=== PATIENT | male | born 1950 | race Caucasian/White ===

== ENCOUNTER 2021-05-01 16:06 | Emergency (ER) | payer OTHER | END 2021-05-01 16:50 | disposition left against medical advice (07) | LOC: ED 16:06 | DX: R06.02 Shortness of breath (principal); Z53.21 Procedure and treatment not carried out due to patient leaving prior to being seen by health care provider ==

== ENCOUNTER 2021-08-13 09:45 | Inpatient (IN) | payer OTHER ==
[~2021-08-13] VITALS: Ht 180.3 cm; Wt 107.2 kg
[2021-08-13 10:01] VITALS: BP 149/71
[2021-08-13 10:12] LABS: BASO # 0.1 10*3/uL (0.0-0.1); EOS # 0.1 10*3/uL (0.0-0.4); EOS % 1.4 % (1.0-4.0); HEMATOCRIT 46.8 % (42.0-52.0); LYMPH # 1.9 10*3/uL (1.3-4.4); LYMPH % 22.6 % (27.0-41.0); MEAN CELL VOLUME 89.8 fl (80.0-94.0); MEAN CORPUSCULAR HGB 29.4 pg (27.0-31.0); MEAN CORPUSCULAR HGB CONC 32.7 g/dl (33.0-37.0); MEAN PLATELET VOLUME 10.2 fl (9.6-12.3); MONO # 0.5 10*3/uL (0.1-1.0); MONO % 5.9 % (3.0-9.0); NEUT # 5.8 10*3/uL (2.3-7.9); NEUT % 68.9 % (47.0-73.0); PLATELET COUNT AUTOMATED 282 10*3/uL (130-400); RED BLOOD COUNT 5.21 10*6/uL (4.50-5.90); RED CELL DISTRI WIDTH 13.2 % (0-14.5); WHITE BLOOD COUNT 8.4 10*3/uL (4.8-10.8)
[2021-08-13 10:23] LABS: ACT PARTIAL THROMBO TIME 33.3 SECONDS (20.0-32.1)
[2021-08-13 10:29] LABS: ALKALINE PHOSPHATASE 62 U/L (45-117); BUN 12 mg/dl (7-24); CHLORIDE 107 mmol/L (98-107); CREATININE 1.12 mg/dL (0.70-1.30); POTASSIUM 3.6 mmol/L (3.5-5.1); SGOT/AST 12 IU/L (3-35); SGPT/ALT 22 U/L (12-78); SODIUM 138 mmol/L (136-145); TOTAL PROTEIN 7.5 gm/dL (6.4-8.2)
[2021-08-13 13:26] VITALS: BP 142/77
[2021-08-13 16:00] VITALS: BP 135/78
[2021-08-13 20:00] VITALS: BP 141/46
[2021-08-14] VITALS: BP 131/75
[2021-08-14 06:46] LABS: BUN 15 mg/dl (7-24); CHLORIDE 109 mmol/L (98-107); POTASSIUM 4.1 mmol/L (3.5-5.1); SODIUM 137 mmol/L (136-145)
[2021-08-14 06:55] LABS: ALKALINE PHOSPHATASE 59 U/L (45-117); CREATININE 1.12 mg/dL (0.70-1.30); FREE T4 0.96 ng/dl (0.76-1.46); SGOT/AST 6 IU/L (3-35); SGPT/ALT 21 U/L (12-78); THYROID STIM HORMONE (HS) 0.373 uIU/ml (0.358-4.75); TOTAL PROTEIN 7.5 gm/dL (6.4-8.2)
[2021-08-14 07:01] LABS: BASO % 0.1 % (0.0-1.0); HEMATOCRIT 45.4 % (42.0-52.0); LYMPH # 1.4 10*3/uL (1.3-4.4); LYMPH % 9.9 % (27.0-41.0); MEAN CELL VOLUME 89.2 fl (80.0-94.0); MEAN CORPUSCULAR HGB 29.9 pg (27.0-31.0); MEAN CORPUSCULAR HGB CONC 33.5 g/dl (33.0-37.0); MEAN PLATELET VOLUME 10.8 fl (9.6-12.3); MONO # 0.7 10*3/uL (0.1-1.0); MONO % 4.6 % (3.0-9.0); NEUT # 12.3 10*3/uL (2.3-7.9); NEUT % 84.8 % (47.0-73.0); PLATELET COUNT AUTOMATED 294 10*3/uL (130-400); RED BLOOD COUNT 5.09 10*6/uL (4.50-5.90); RED CELL DISTRI WIDTH 13.3 % (0-14.5); WHITE BLOOD COUNT 14.4 10*3/uL (4.8-10.8)
[2021-08-14 08:00] VITALS: BP 148/90
[2021-08-14] MEDS ORDERED: MAGNESIUM400 M1 PO (12:14)
[2021-08-14] MEDS ORDERED: BREZTRI AEROS10.7 GM INH (12:15)
[2021-08-14] MEDS ORDERED: PROVENTIL HFA6.7 GM INH (12:16)
[2021-08-14] MEDS ORDERED: DONEPEZIL HCL10 MG PO (12:17)
[2021-08-14] MEDS ORDERED: ALLOPURINOL100 MG PO (12:17)
[2021-08-14] MEDS ORDERED: NORVASC10 MG PO (12:18)
[2021-08-14] MEDS ORDERED: OMEPRAZOLE MAGN20 MG PO (12:18)
[2021-08-14] MEDS ORDERED: TAMSULOSIN HCL0.4 MG PO (12:19)
[2021-08-14] MEDS ORDERED: BUPROPION HYDR100 MG PO (12:19)
[2021-08-14] MEDS ORDERED: ZOLOFT100 MG PO (12:20)
[2021-08-14] MEDS ORDERED: LIPITOR80 MG PO (12:20)
[2021-08-14] MEDS ORDERED: LYRICA150 M1 PO (12:20)
[2021-08-14 16:00] VITALS: BP 157/64
[2021-08-14 20:00] VITALS: BP 163/94
[2021-08-15] VITALS: BP 174/67
[2021-08-15 06:09] LABS: BASO % 0.2 % (0.0-1.0); HEMATOCRIT 48.6 % (42.0-52.0); LYMPH # 2.7 10*3/uL (1.3-4.4); LYMPH % 13.8 % (27.0-41.0); MEAN CELL VOLUME 89.8 fl (80.0-94.0); MEAN CORPUSCULAR HGB 29.8 pg (27.0-31.0); MEAN CORPUSCULAR HGB CONC 33.1 g/dl (33.0-37.0); MEAN PLATELET VOLUME 10.7 fl (9.6-12.3); MONO # 1.2 10*3/uL (0.1-1.0); MONO % 6.1 % (3.0-9.0); NEUT # 15.8 10*3/uL (2.3-7.9); NEUT % 79.2 % (47.0-73.0); PLATELET COUNT AUTOMATED 301 10*3/uL (130-400); RED BLOOD COUNT 5.41 10*6/uL (4.50-5.90); RED CELL DISTRI WIDTH 13.8 % (0-14.5); WHITE BLOOD COUNT 19.9 10*3/uL (4.8-10.8)
[2021-08-15 06:32] LABS: BUN 23 mg/dl (7-24); CHLORIDE 105 mmol/L (98-107); CREATININE 1.06 mg/dL (0.70-1.30); POTASSIUM 4.2 mmol/L (3.5-5.1); SODIUM 136 mmol/L (136-145)
[2021-08-15 08:00] VITALS: BP 153/80
[2021-08-15 12:00] VITALS: BP 115/59
[2021-08-15 16:00] VITALS: BP 147/72
[2021-08-15 20:00] VITALS: BP 154/80
[2021-08-16] VITALS: BP 139/75
[2021-08-16 06:28] LABS: BASO % 0.1 % (0.0-1.0); HEMATOCRIT 47.8 % (42.0-52.0); LYMPH # 2.1 10*3/uL (1.3-4.4); LYMPH % 10.9 % (27.0-41.0); MEAN CELL VOLUME 90.2 fl (80.0-94.0); MEAN CORPUSCULAR HGB 30.4 pg (27.0-31.0); MEAN CORPUSCULAR HGB CONC 33.7 g/dl (33.0-37.0); MEAN PLATELET VOLUME 10.9 fl (9.6-12.3); MONO % 5.2 % (3.0-9.0); NEUT % 83.3 % (47.0-73.0); PLATELET COUNT AUTOMATED 316 10*3/uL (130-400); RED CELL DISTRI WIDTH 13.6 % (0-14.5); WHITE BLOOD COUNT 19.2 10*3/uL (4.8-10.8)
[2021-08-16 06:46] LABS: BUN 29 mg/dl (7-24); CHLORIDE 106 mmol/L (98-107); CREATININE 1.09 mg/dL (0.70-1.30); POTASSIUM 4.1 mmol/L (3.5-5.1); SODIUM 136 mmol/L (136-145)
[2021-08-16 08:00] VITALS: BP 128/76
[2021-08-16] MEDS ORDERED: XARE20MG PO (11:54)
[2021-08-16] MEDS ORDERED: METOPROLOL SUCC50 M1 PO (11:54)
[2021-08-16] MEDS ORDERED: PREDNISONE10 MG PO (11:55)
[2021-08-16] MEDS ORDERED: AMLODIPINE BESYL5 MG PO (11:55)
[2021-08-16] MEDS ORDERED: MUCUS RELIEF600 MG PO (11:55)
== END 2021-08-16 12:45 | disposition home or self-care (01) | DRG 191 ==
LOC: ED 09:45 → 4E 13:24 → EDHOLD 13:24 → 4E 14:04
PROVIDERS: Emergency Medicine; Internal Medicine; ADMIT Family Medicine; ATTEND Family Medicine
DX: J44.1 Chronic obstructive pulmonary disease with (acute) exacerbation (principal); D68.9 Coagulation defect, unspecified; E87.2 Acidosis; R73.9 Hyperglycemia, unspecified; G62.9 Polyneuropathy, unspecified; F43.10 Post-traumatic stress disorder, unspecified; E78.5 Hyperlipidemia, unspecified; I10 Essential (primary) hypertension; I48.91 Unspecified atrial fibrillation; Z90.49 Acquired absence of other specified parts of digestive tract; Z88.0 Allergy status to penicillin; Z79.899 Other long term (current) drug therapy; Z87.891 Personal history of nicotine dependence

== ENCOUNTER 2021-11-14 09:17 | Inpatient (IN) | payer OTHER ==
[~2021-11-14] VITALS: Ht 180.3 cm; Wt 104.0 kg
[2021-11-14] VITALS: BP 131/79
[~2021-11-14 09:17] MED LIST: ALLOPURINOL100 MG PO; AMLODIPINE BESYL5 MG PO; BREZTRI AEROS10.7 GM INH; BUPROPION HYDR100 MG PO; DONEPEZIL HCL10 MG PO; LIPITOR80 MG PO; LYRICA150 M1 PO; MAGNESIUM400 M1 PO; METOPROLOL SUCC50 M1 PO; MUCUS RELIEF600 MG PO; NORVASC10 MG PO; OMEPRAZOLE MAGN20 MG PO; PREDNISONE10 MG PO; PROVENTIL HFA6.7 GM INH; TAMSULOSIN HCL0.4 MG PO; XARE20MG PO; ZOLOFT100 MG PO
[2021-11-14 10:01] VITALS: BP 131/65
[2021-11-14 10:09] LABS: BASO # 0.1 10*3/uL (0.0-0.1); EOS # 0.1 10*3/uL (0.0-0.4); EOS % 0.8 % (1.0-4.0); HEMATOCRIT 48.1 % (42.0-52.0); LYMPH # 0.4 10*3/uL (1.3-4.4); LYMPH % 3.8 % (27.0-41.0); MEAN CELL VOLUME 90.8 fl (80.0-94.0); MEAN CORPUSCULAR HGB 29.1 pg (27.0-31.0); MEAN PLATELET VOLUME 10.5 fl (9.6-12.3); MONO # 0.6 10*3/uL (0.1-1.0); MONO % 6.4 % (3.0-9.0); NEUT # 8.2 10*3/uL (2.3-7.9); NEUT % 87.8 % (47.0-73.0); PLATELET COUNT AUTOMATED 201 10*3/uL (130-400); RED CELL DISTRI WIDTH 13.3 % (0-14.5); WHITE BLOOD COUNT 9.3 10*3/uL (4.8-10.8)
[2021-11-14 10:19] LABS: ACT PARTIAL THROMBO TIME 32.2 SECONDS (20.0-32.1)
[2021-11-14 10:27] LABS: ALKALINE PHOSPHATASE 66 U/L (45-117); BUN 12 mg/dl (7-24); CHLORIDE 107 mmol/L (98-107); CREATININE 1.31 mg/dL (0.70-1.30); POTASSIUM 4.1 mmol/L (3.5-5.1); SGOT/AST 14 IU/L (3-35); SGPT/ALT 21 U/L (12-78); SODIUM 138 mmol/L (136-145); TOTAL PROTEIN 7.1 gm/dL (6.4-8.2)
[2021-11-14 14:35] VITALS: BP 127/75
[2021-11-14] MEDS ORDERED: ELIQUIS5 M1 PO (16:25)
[2021-11-14] MEDS ORDERED: CENTRUM ADULTS1 EACH PO (16:26)
[2021-11-14 20:00] VITALS: BP 148/66
[2021-11-15] VITALS: BP 131/79
[2021-11-15 06:03] LABS: CREATININE 1.5 mg/dL (0.70-1.30); POTASSIUM 3.4 mmol/L (3.5-5.1)
[2021-11-15 06:07] LABS: FREE T4 0.84 ng/dl (0.76-1.46); THYROID STIM HORMONE (HS) 1.12 uIU/ml (0.358-4.75)
[2021-11-15 06:28] LABS: BASO # 0.1 10*3/uL (0.0-0.1); BASO % 1.1 % (0.0-1.0); EOS % 0.4 % (1.0-4.0); HEMATOCRIT 48.3 % (42.0-52.0); LYMPH # 1.2 10*3/uL (1.3-4.4); LYMPH % 22.3 % (27.0-41.0); MEAN CORPUSCULAR HGB 29.5 pg (27.0-31.0); MEAN CORPUSCULAR HGB CONC 32.1 g/dl (33.0-37.0); MEAN PLATELET VOLUME 11.3 fl (9.6-12.3); MONO # 0.9 10*3/uL (0.1-1.0); MONO % 16.8 % (3.0-9.0); NEUT # 3.1 10*3/uL (2.3-7.9); PLATELET COUNT AUTOMATED 188 10*3/uL (130-400); RED BLOOD COUNT 5.25 10*6/uL (4.50-5.90); RED CELL DISTRI WIDTH 13.9 % (0-14.5); WHITE BLOOD COUNT 5.3 10*3/uL (4.8-10.8)
[2021-11-15 07:00] LABS: INTERNATIONAL NORM RATIO 1.1 (2.0-3.5)
[2021-11-15 08:00] VITALS: BP 115/55
[2021-11-15 12:54] VITALS: BP 156/76
[2021-11-15 13:30] VITALS: BP 150/81
[2021-11-15 16:00] VITALS: BP 139/70
== END 2021-11-15 16:00 | disposition home or self-care (01) | DRG 311 ==
LOC: ED 09:17 → EDHOLD 12:27 → 4E 12:27 → EDHOLD 13:08 → 4E 13:40
PROVIDERS: Emergency Medicine; Student in an Organized Health Care Education/Training Program; ADMIT Internal Medicine; ATTEND Internal Medicine
PROC: 4A02XM4 Measurement of Cardiac Total Activity, External Approach (ICD-10-PCS; principal; 2021-11-15)
PROC: 3E033HZ Introduction of Radioactive Substance into Peripheral Vein, Percutaneous Approach (ICD-10-PCS; 2021-11-15)
DX: I24.8 Other forms of acute ischemic heart disease (principal); J44.1 Chronic obstructive pulmonary disease with (acute) exacerbation; I50.30 Unspecified diastolic (congestive) heart failure; E87.2 Acidosis; E78.5 Hyperlipidemia, unspecified; I48.0 Paroxysmal atrial fibrillation; G62.9 Polyneuropathy, unspecified; I11.0 Hypertensive heart disease with heart failure; I44.4 Left anterior fascicular block; F12.10 Cannabis abuse, uncomplicated; R07.89 Other chest pain; Z88.0 Allergy status to penicillin; Z87.891 Personal history of nicotine dependence; Z79.82 Long term (current) use of aspirin; Z79.899 Other long term (current) drug therapy; Z90.49 Acquired absence of other specified parts of digestive tract

== ENCOUNTER 2022-04-03 09:09 | Emergency (ER) | payer OTHER ==
[~2022-04-03] VITALS: Ht 180.3 cm; Wt 116.6 kg
[~2022-04-03 09:09] MED LIST changes: +CENTRUM ADULTS1 EACH PO; +ELIQUIS5 M1 PO
== END 2022-04-03 12:10 | disposition home or self-care (01) ==
LOC: ED 09:09
DX: S89.92XA Unspecified injury of left lower leg, initial encounter (principal); S99.912A Unspecified injury of left ankle, initial encounter; J44.9 Chronic obstructive pulmonary disease, unspecified; E78.5 Hyperlipidemia, unspecified; I10 Essential (primary) hypertension; Z88.0 Allergy status to penicillin; Z87.891 Personal history of nicotine dependence; Z90.49 Acquired absence of other specified parts of digestive tract; W18.39XA Other fall on same level, initial encounter; Y93.89 Activity, other specified; Y92.89 Other specified places as the place of occurrence of the external cause; Y99.8 Other external cause status

== ENCOUNTER 2022-06-23 15:37 | Emergency (ER) | payer OTHER ==
[~2022-06-23] VITALS: Ht 154.9 cm; Wt 111.6 kg
[2022-06-23 16:46] LABS: BASO # 0.1 10*3/uL (0.0-0.1); BASO % 1.1 % (0.0-1.0); EOS # 0.3 10*3/uL (0.0-0.4); EOS % 2.8 % (1.0-4.0); HEMATOCRIT 44.9 % (42.0-52.0); LYMPH # 2.7 10*3/uL (1.3-4.4); LYMPH % 26.8 % (27.0-41.0); MEAN CELL VOLUME 91.3 fl (80.0-94.0); MEAN CORPUSCULAR HGB 28.9 pg (27.0-31.0); MEAN CORPUSCULAR HGB CONC 31.6 g/dl (33.0-37.0); MEAN PLATELET VOLUME 10.6 fl (9.6-12.3); MONO # 0.9 10*3/uL (0.1-1.0); MONO % 9.2 % (3.0-9.0); NEUT % 59.8 % (47.0-73.0); PLATELET COUNT AUTOMATED 193 10*3/uL (130-400); RED BLOOD COUNT 4.92 10*6/uL (4.50-5.90); RED CELL DISTRI WIDTH 13.6 % (0-14.5)
[2022-06-23 17:02] LABS: ALKALINE PHOSPHATASE 96 U/L (46-116); BUN 14 mg/dl (9-23); CHLORIDE 104 mmol/L (98-107); POTASSIUM 4.2 mmol/L (3.4-5.1); SGPT/ALT 18 U/L (10-49); TOTAL PROTEIN 6.5 gm/dL (6.0-8.0)
== END 2022-06-23 18:47 | disposition home or self-care (01) ==
LOC: ED 15:37
PROVIDERS: Nurse Practitioner Family
DX: R07.89 Other chest pain (principal); M19.90 Unspecified osteoarthritis, unspecified site; J44.9 Chronic obstructive pulmonary disease, unspecified; F32.A Depression, unspecified; I10 Essential (primary) hypertension; Z88.0 Allergy status to penicillin; Z90.49 Acquired absence of other specified parts of digestive tract; Z87.891 Personal history of nicotine dependence; F12.10 Cannabis abuse, uncomplicated; W19.XXXA Unspecified fall, initial encounter

== ENCOUNTER 2022-09-19 17:44 | Emergency (ER) | payer OTHER ==
[~2022-09-19] VITALS: Ht 177.8 cm; Wt 111.1 kg
[2022-09-19 18:41] LABS: BASO # 0.1 10*3/uL (0.0-0.1); BASO % 1.3 % (0.0-1.0); EOS # 0.1 10*3/uL (0.0-0.4); EOS % 1.6 % (1.0-4.0); HEMATOCRIT 45.5 % (42.0-52.0); LYMPH # 2.6 10*3/uL (1.3-4.4); LYMPH % 30.1 % (27.0-41.0); MEAN CELL VOLUME 90.5 fl (80.0-94.0); MEAN CORPUSCULAR HGB 28.8 pg (27.0-31.0); MEAN CORPUSCULAR HGB CONC 31.9 g/dl (33.0-37.0); MONO # 0.8 10*3/uL (0.1-1.0); MONO % 9.2 % (3.0-9.0); NEUT # 4.9 10*3/uL (2.3-7.9); NEUT % 57.4 % (47.0-73.0); PLATELET COUNT AUTOMATED 230 10*3/uL (130-400); RED BLOOD COUNT 5.03 10*6/uL (4.50-5.90); RED CELL DISTRI WIDTH 13.6 % (0-14.5); WHITE BLOOD COUNT 8.6 10*3/uL (4.8-10.8)
[2022-09-19 19:07] LABS: ALKALINE PHOSPHATASE 71 U/L (46-116); BUN 13 mg/dl (9-23); CHLORIDE 106 mmol/L (98-107); POTASSIUM 5.3 mmol/L (3.4-5.1); SGPT/ALT 18 U/L (10-49); TOTAL PROTEIN 6.9 gm/dL (6.0-8.0)
== END 2022-09-19 21:28 | disposition home or self-care (01) ==
LOC: ED 17:44
PROVIDERS: Student in an Organized Health Care Education/Training Program
DX: M54.6 Pain in thoracic spine (principal); R07.89 Other chest pain; M19.90 Unspecified osteoarthritis, unspecified site; J44.9 Chronic obstructive pulmonary disease, unspecified; I10 Essential (primary) hypertension; E78.00 Pure hypercholesterolemia, unspecified; F32.A Depression, unspecified; G62.9 Polyneuropathy, unspecified; Z88.0 Allergy status to penicillin; Z90.49 Acquired absence of other specified parts of digestive tract; Z87.891 Personal history of nicotine dependence; F12.10 Cannabis abuse, uncomplicated

== ENCOUNTER 2023-02-21 11:10 | Emergency (ER) | payer OTHER ==
[~2023-02-21] VITALS: Ht 180.3 cm; Wt 108.4 kg
[2023-02-21 11:44] LABS: BASO # 0.1 10*3/uL (0.0-0.1); BASO % 0.9 % (0.0-1.0); EOS # 0.2 10*3/uL (0.0-0.4); EOS % 1.6 % (1.0-4.0); HEMATOCRIT 47.2 % (42.0-52.0); LYMPH # 2.3 10*3/uL (1.3-4.4); LYMPH % 21.3 % (27.0-41.0); MEAN CELL VOLUME 91.8 fl (80.0-94.0); MEAN CORPUSCULAR HGB 29.4 pg (27.0-31.0); MEAN PLATELET VOLUME 10.3 fl (9.6-12.3); MONO # 0.8 10*3/uL (0.1-1.0); MONO % 7.5 % (3.0-9.0); NEUT # 7.2 10*3/uL (2.3-7.9); NEUT % 68.2 % (47.0-73.0); PLATELET COUNT AUTOMATED 249 10*3/uL (130-400); RED BLOOD COUNT 5.14 10*6/uL (4.50-5.90); RED CELL DISTRI WIDTH 13.8 % (0-14.5); WHITE BLOOD COUNT 10.6 10*3/uL (4.8-10.8)
[2023-02-21 12:07] LABS: ALKALINE PHOSPHATASE 80 U/L (46-116); BUN 9 mg/dl (9-23); CHLORIDE 107 mmol/L (98-107); POTASSIUM 4.1 mmol/L (3.4-5.1); SGPT/ALT 11 U/L (5-49); TOTAL PROTEIN 6.6 gm/dL (6.0-8.0)
[2023-02-21] MEDS ORDERED: PREDNISONE50 MG PO (12:53)
[2023-02-21] MEDS ORDERED: ZITHROMAX250 MG PO (12:53)
[2023-02-21] MEDS ORDERED: VIBRAMYCIN100 MG PO (13:48)
== END 2023-02-21 16:44 | disposition home or self-care (01) ==
LOC: ED 11:10
PROVIDERS: Physician Assistant Medical
DX: J44.1 Chronic obstructive pulmonary disease with (acute) exacerbation (principal); R00.1 Bradycardia, unspecified; J18.9 Pneumonia, unspecified organism; M19.90 Unspecified osteoarthritis, unspecified site; I10 Essential (primary) hypertension; E78.00 Pure hypercholesterolemia, unspecified; F32.A Depression, unspecified; Z88.0 Allergy status to penicillin; Z90.49 Acquired absence of other specified parts of digestive tract; Z87.891 Personal history of nicotine dependence; F12.10 Cannabis abuse, uncomplicated

== ENCOUNTER 2023-05-14 18:03 | Emergency (ER) | payer OTHER ==
[~2023-05-14 18:03] MED LIST changes: +PREDNISONE50 MG PO; +VIBRAMYCIN100 MG PO; +ZITHROMAX250 MG PO
[2023-05-14 20:06] LABS: BASO # 0.1 10*3/uL (0.0-0.1); BASO % 1.1 % (0.0-1.0); EOS # 0.1 10*3/uL (0.0-0.4); EOS % 1.3 % (1.0-4.0); HEMATOCRIT 47.3 % (42.0-52.0); LYMPH # 2.4 10*3/uL (1.3-4.4); LYMPH % 25.8 % (27.0-41.0); MEAN CELL VOLUME 90.8 fl (80.0-94.0); MEAN CORPUSCULAR HGB 28.6 pg (27.0-31.0); MEAN CORPUSCULAR HGB CONC 31.5 g/dl (33.0-37.0); MEAN PLATELET VOLUME 9.9 fl (9.6-12.3); MONO # 0.8 10*3/uL (0.1-1.0); MONO % 8.6 % (3.0-9.0); NEUT # 5.9 10*3/uL (2.3-7.9); PLATELET COUNT AUTOMATED 248 10*3/uL (130-400); RED BLOOD COUNT 5.21 10*6/uL (4.50-5.90); RED CELL DISTRI WIDTH 13.5 % (0-14.5); WHITE BLOOD COUNT 9.3 10*3/uL (4.8-10.8)
[2023-05-14 20:22] LABS: ACT PARTIAL THROMBO TIME 31.9 SECONDS (20.0-32.1)
[2023-05-14 20:25] LABS: BILIRUBIN Negative (Negative); BLOOD Negative (Negative); CLARITY Clear (Clear); COLOR Yellow (Yellow); GLUCOSE Negative (Negative); KETONE Negative (Negative); LEUKO ESTERASE Trace (Negative); NITRITE Negative (Negative); PH 5.5 (4.5-8.0); UROBILINOGEN 0.2 E.U./dl (0.0-1.0)
[2023-05-14 20:26] LABS: ALKALINE PHOSPHATASE 68 U/L (46-116); BUN 12 mg/dl (9-23); CHLORIDE 107 mmol/L (98-107); LIPASE 31 U/L (12-53); POTASSIUM 3.8 mmol/L (3.4-5.1); SGPT/ALT 16 U/L (5-49); TOTAL PROTEIN 6.8 gm/dL (6.0-8.0)
[2023-05-14 20:35] LABS: BACTERIA 1+; RBC 0-2 rbc/hpf (0-2)
== END 2023-05-14 23:10 | disposition home or self-care (01) ==
LOC: ED 18:03
PROVIDERS: Internal Medicine
DX: R00.0 Tachycardia, unspecified (principal); I48.91 Unspecified atrial fibrillation; J44.9 Chronic obstructive pulmonary disease, unspecified; I10 Essential (primary) hypertension; E78.00 Pure hypercholesterolemia, unspecified; F32.A Depression, unspecified; Z88.0 Allergy status to penicillin; Z90.49 Acquired absence of other specified parts of digestive tract; F17.210 Nicotine dependence, cigarettes, uncomplicated; F12.10 Cannabis abuse, uncomplicated

== ENCOUNTER 2023-08-18 13:27 | Emergency (ER) | payer OTHER ==
[2023-08-18 14:05] LABS: BASO # 0.1 10*3/uL (0.0-0.1); BASO % 1.1 % (0.0-1.0); EOS # 0.2 10*3/uL (0.0-0.4); EOS % 1.7 % (1.0-4.0); HEMATOCRIT 49.5 % (42.0-52.0); LYMPH # 2.4 10*3/uL (1.3-4.4); LYMPH % 24.1 % (27.0-41.0); MEAN CELL VOLUME 87.9 fl (80.0-94.0); MEAN CORPUSCULAR HGB 28.2 pg (27.0-31.0); MEAN CORPUSCULAR HGB CONC 32.1 g/dl (33.0-37.0); MEAN PLATELET VOLUME 9.9 fl (9.6-12.3); MONO # 0.8 10*3/uL (0.1-1.0); MONO % 8.3 % (3.0-9.0); NEUT # 6.5 10*3/uL (2.3-7.9); NEUT % 64.6 % (47.0-73.0); PLATELET COUNT AUTOMATED 287 10*3/uL (130-400); RED BLOOD COUNT 5.63 10*6/uL (4.50-5.90); RED CELL DISTRI WIDTH 13.9 % (0-14.5); WHITE BLOOD COUNT 10.1 10*3/uL (4.8-10.8)
[2023-08-18 14:28] LABS: ALKALINE PHOSPHATASE 67 U/L (46-116); BUN 11 mg/dl (9-23); CHLORIDE 105 mmol/L (98-107); LIPASE 38 U/L (12-53); POTASSIUM 3.9 mmol/L (3.4-5.1); SGPT/ALT 18 U/L (5-49); TOTAL PROTEIN 7.1 gm/dL (6.0-8.0)
[2023-08-18 14:42] LABS: ACT PARTIAL THROMBO TIME 38.4 SECONDS (20.0-32.1)
== END 2023-08-18 16:35 | disposition home or self-care (01) ==
LOC: ED 13:27
PROVIDERS: Internal Medicine
DX: R00.2 Palpitations (principal); I48.91 Unspecified atrial fibrillation; M19.90 Unspecified osteoarthritis, unspecified site; J44.9 Chronic obstructive pulmonary disease, unspecified; I10 Essential (primary) hypertension; E78.00 Pure hypercholesterolemia, unspecified; F32.A Depression, unspecified; Z88.0 Allergy status to penicillin; Z90.49 Acquired absence of other specified parts of digestive tract; Z87.891 Personal history of nicotine dependence; F12.10 Cannabis abuse, uncomplicated

== ENCOUNTER 2023-10-27 08:14 | Emergency (ER) | payer OTHER ==
[~2023-10-27] VITALS: Ht 180.3 cm; Wt 90.7 kg
[2023-10-27] MEDS ORDERED: Metoprolol Tartrate 5 MG/5 ML VIAL IV ONE (08:30)
[2023-10-27] MEDS ORDERED: [UNRECOGNIZED DRUG - REMARK] (08:33)
[2023-10-27 08:53] LABS: BASO # 0.1 10*3/uL (0.0-0.1); BASO % 1.3 % (0.0-1.0); EOS # 0.1 10*3/uL (0.0-0.4); EOS % 1.5 % (1.0-4.0); HEMATOCRIT 48.9 % (42.0-52.0); LYMPH # 2.1 10*3/uL (1.3-4.4); LYMPH % 21.7 % (27.0-41.0); MEAN CELL VOLUME 88.9 fl (80.0-94.0); MEAN CORPUSCULAR HGB CONC 31.5 g/dl (33.0-37.0); MEAN PLATELET VOLUME 10.3 fl (9.6-12.3); MONO # 0.8 10*3/uL (0.1-1.0); NEUT # 6.4 10*3/uL (2.3-7.9); NEUT % 67.3 % (47.0-73.0); PLATELET COUNT AUTOMATED 295 10*3/uL (130-400); RED CELL DISTRI WIDTH 13.6 % (0-14.5); WHITE BLOOD COUNT 9.4 10*3/uL (4.8-10.8)
[2023-10-27 09:07] LABS: ACT PARTIAL THROMBO TIME 33.3 SECONDS (20.0-32.1)
[2023-10-27 09:14] LABS: ALKALINE PHOSPHATASE 68 U/L (46-116); BUN 12 mg/dl (9-23); CHLORIDE 106 mmol/L (98-107); POTASSIUM 4.2 mmol/L (3.4-5.1); SGPT/ALT 18 U/L (5-49); TOTAL PROTEIN 6.7 gm/dL (6.0-8.0)
[2023-10-27 09:15] LABS: ETHYL ALCOHOL < 3.0 mg/dl (<3)
[2023-10-27 09:55] LABS: BILIRUBIN Negative (Negative); BLOOD Negative (Negative); CLARITY Clear (Clear); COLOR Yellow (Yellow); GLUCOSE Negative (Negative); KETONE Negative (Negative); LEUKO ESTERASE Negative (Negative); NITRITE Negative (Negative); PH 5.5 (4.5-8.0); SPECIFIC GRAVITY 1.015 (1.001-1.030); UROBILINOGEN 0.2 E.U./dl (0.0-1.0)
[2023-10-27 10:03] LABS: RBC 0-2 rbc/hpf (0-2); URINE AMPHETAMINES Negative (1000ng/ml); URINE BARBITURATES Negative (200ng/ml); URINE BENZODIAZEPINES Negative (200ng/ml); URINE CANNABINOIDS (THC) Positive (50ng/ml); URINE COCAINE Negative (300ng/ml); URINE METHADONE Negative (300ng/ml); URINE OPIATES Negative (300ng/ml); URINE PHENCYCLIDINE Negative (25ng/ml)
== END 2023-10-27 11:41 | disposition home or self-care (01) ==
LOC: ED 08:14
PROVIDERS: Internal Medicine
DX: I48.91 Unspecified atrial fibrillation (principal); J44.9 Chronic obstructive pulmonary disease, unspecified; Z88.0 Allergy status to penicillin; Z79.899 Other long term (current) drug therapy; Z90.49 Acquired absence of other specified parts of digestive tract; Z87.891 Personal history of nicotine dependence

== ENCOUNTER 2023-11-18 10:29 | Emergency (ER) | payer OTHER ==
[~2023-11-18] VITALS: Ht 180.3 cm; Wt 106.6 kg
[~2023-11-18 10:29] MED LIST changes: +CELECOXIB200 M1 PO; +D3-200050 MCG PO; +GABAPENTIN100 M2 PO; +SERTRALINE HYD100 MG PO; +TROSPIUM CHLORI20 M1 PO; +ZETIA10 MG PO; +[UNRECOGNIZED DRUG - OTHER] T; +[UNRECOGNIZED DRUG - REMARK]
[2023-11-18] MEDS ORDERED: Albuterol Sulf/Ipratropium 3 ML VIAL NEB ONE (10:35)
[2023-11-18 10:55] LABS: BASO # 0.1 10*3/uL (0.0-0.1); BASO % 0.9 % (0.0-1.0); EOS # 0.2 10*3/uL (0.0-0.4); EOS % 1.7 % (1.0-4.0); HEMATOCRIT 45.1 % (42.0-52.0); LYMPH # 2.2 10*3/uL (1.3-4.4); LYMPH % 23.4 % (27.0-41.0); MEAN CELL VOLUME 88.4 fl (80.0-94.0); MEAN CORPUSCULAR HGB CONC 31.7 g/dl (33.0-37.0); MEAN PLATELET VOLUME 10.1 fl (9.6-12.3); MONO # 0.8 10*3/uL (0.1-1.0); MONO % 8.3 % (3.0-9.0); NEUT # 6.3 10*3/uL (2.3-7.9); NEUT % 65.4 % (47.0-73.0); PLATELET COUNT AUTOMATED 257 10*3/uL (130-400); RED CELL DISTRI WIDTH 13.7 % (0-14.5); WHITE BLOOD COUNT 9.6 10*3/uL (4.8-10.8)
[2023-11-18 11:06] LABS: ACT PARTIAL THROMBO TIME 32.9 SECONDS (20.0-32.1)
[2023-11-18 11:16] LABS: ALKALINE PHOSPHATASE 60 U/L (46-116); BUN 10 mg/dl (9-23); CHLORIDE 106 mmol/L (98-107); POTASSIUM 4.1 mmol/L (3.4-5.1); SGPT/ALT 22 U/L (5-49); TOTAL PROTEIN 6.6 gm/dL (6.0-8.0)
== END 2023-11-18 13:45 | disposition home or self-care (01) ==
LOC: ED 10:29
PROVIDERS: Internal Medicine
DX: R07.89 Other chest pain (principal); R06.02 Shortness of breath; R06.2 Wheezing; I48.91 Unspecified atrial fibrillation; J44.9 Chronic obstructive pulmonary disease, unspecified; Z88.0 Allergy status to penicillin; Z79.899 Other long term (current) drug therapy; Z90.49 Acquired absence of other specified parts of digestive tract; Z87.891 Personal history of nicotine dependence

== ENCOUNTER 2024-04-03 15:04 | Emergency (ER) | payer OTHER ==
[~2024-04-03] VITALS: Ht 180.3 cm; Wt 110.2 kg
[2024-04-03 15:46] LABS: BASO # 0.1 10*3/uL (0.0-0.1); BASO % 0.8 % (0.0-1.0); EOS # 0.1 10*3/uL (0.0-0.4); EOS % 1.2 % (1.0-4.0); HEMATOCRIT 47.4 % (42.0-52.0); MEAN CELL VOLUME 86.7 fl (80.0-94.0); MEAN CORPUSCULAR HGB 27.1 pg (27.0-31.0); MEAN CORPUSCULAR HGB CONC 31.2 g/dl (33.0-37.0); MEAN PLATELET VOLUME 9.8 fl (9.6-12.3); MONO # 0.7 10*3/uL (0.1-1.0); MONO % 6.5 % (3.0-9.0); NEUT # 7.2 10*3/uL (2.3-7.9); NEUT % 67.8 % (47.0-73.0); PLATELET COUNT AUTOMATED 288 10*3/uL (130-400); RED BLOOD COUNT 5.47 10*6/uL (4.50-5.90); RED CELL DISTRI WIDTH 14.3 % (0-14.5); WHITE BLOOD COUNT 10.6 10*3/uL (4.8-10.8)
[2024-04-03 15:58] LABS: ACT PARTIAL THROMBO TIME 37.5 SECONDS (20.0-32.1)
[2024-04-03 16:07] LABS: ALKALINE PHOSPHATASE 70 U/L (46-116); BUN 11 mg/dl (9-23); CHLORIDE 106 mmol/L (98-107); POTASSIUM 3.3 mmol/L (3.4-5.1); SGPT/ALT 13 U/L (5-49); TOTAL PROTEIN 6.9 gm/dL (6.0-8.0)
[2024-04-03] MEDS ORDERED: POTASSIUM CHLORIDE 20 MEQ TAB PO ONE (16:55)
[2024-04-03] MEDS ORDERED: K-TAB20 MEQ PO (18:45)
== END 2024-04-03 18:46 | disposition home or self-care (01) ==
LOC: ED 15:04
PROVIDERS: Internal Medicine
DX: R00.2 Palpitations (principal); R53.81 Other malaise; I48.91 Unspecified atrial fibrillation; I10 Essential (primary) hypertension; J44.9 Chronic obstructive pulmonary disease, unspecified; K21.9 Gastro-esophageal reflux disease without esophagitis; E78.00 Pure hypercholesterolemia, unspecified; M19.90 Unspecified osteoarthritis, unspecified site; F32.A Depression, unspecified; R51.9 Headache, unspecified; R42 Dizziness and giddiness; F12.10 Cannabis abuse, uncomplicated; Z87.891 Personal history of nicotine dependence; Z88.0 Allergy status to penicillin; Z90.49 Acquired absence of other specified parts of digestive tract

== ENCOUNTER 2024-06-06 21:47 | Emergency (ER) | payer OTHER ==
[~2024-06-06] VITALS: Ht 180.3 cm; Wt 100.7 kg
[~2024-06-06 21:47] MED LIST changes: +K-TAB20 MEQ PO
[2024-06-06] MEDS ORDERED: ASPIRIN, CHEWABLE 81 MG TAB PO ONE (22:05)
[2024-06-06 22:27] LABS: BASO # 0.1 10*3/uL (0.0-0.1); BASO % 1.1 % (0.0-1.0); EOS # 0.2 10*3/uL (0.0-0.4); EOS % 1.8 % (1.0-4.0); HEMATOCRIT 44.5 % (42.0-52.0); MEAN CELL VOLUME 86.6 fl (80.0-94.0); MEAN CORPUSCULAR HGB 27.2 pg (27.0-31.0); MEAN CORPUSCULAR HGB CONC 31.5 g/dl (33.0-37.0); MONO # 0.8 10*3/uL (0.1-1.0); MONO % 8.6 % (3.0-9.0); NEUT % 51.5 % (47.0-73.0); PLATELET COUNT AUTOMATED 281 10*3/uL (130-400); RED BLOOD COUNT 5.14 10*6/uL (4.50-5.90); RED CELL DISTRI WIDTH 14.1 % (0-14.5); WHITE BLOOD COUNT 9.8 10*3/uL (4.8-10.8)
[2024-06-06 22:51] LABS: ALKALINE PHOSPHATASE 80 U/L (46-116); BUN 15 mg/dl (9-23); CHLORIDE 101 mmol/L (98-107); POTASSIUM 3.7 mmol/L (3.4-5.1); SGPT/ALT 12 U/L (5-49); TOTAL PROTEIN 6.5 gm/dL (6.0-8.0)
== END 2024-06-07 01:05 | disposition home or self-care (01) ==
LOC: ED 21:47
PROVIDERS: Internal Medicine
DX: R07.89 Other chest pain (principal); R06.02 Shortness of breath; M19.90 Unspecified osteoarthritis, unspecified site; I12.9 Hypertensive chronic kidney disease with stage 1 through stage 4 chronic kidney disease, or unspecified chronic kidney disease; N18.31 Chronic kidney disease, stage 3a; J44.9 Chronic obstructive pulmonary disease, unspecified; K21.9 Gastro-esophageal reflux disease without esophagitis; E78.00 Pure hypercholesterolemia, unspecified; F32.A Depression, unspecified; I48.91 Unspecified atrial fibrillation; F12.10 Cannabis abuse, uncomplicated; Z88.0 Allergy status to penicillin; Z90.49 Acquired absence of other specified parts of digestive tract; Z87.891 Personal history of nicotine dependence

== ENCOUNTER 2024-10-03 18:31 | Emergency (ER) | payer OTHER ==
[~2024-10-03] VITALS: Ht 180.3 cm; Wt 112.0 kg
[2024-10-03] MEDS ORDERED: Acetaminophen/Hydrocodone 5 MG/325 MG TABLET PO ONE (19:00)
== END 2024-10-03 19:12 | disposition home or self-care (01) ==
LOC: ED 18:31
DX: S42.022A Displaced fracture of shaft of left clavicle, initial encounter for closed fracture (principal); J44.9 Chronic obstructive pulmonary disease, unspecified; I48.91 Unspecified atrial fibrillation; Z88.0 Allergy status to penicillin; Z79.899 Other long term (current) drug therapy; Z90.49 Acquired absence of other specified parts of digestive tract; Z87.891 Personal history of nicotine dependence; W18.39XA Other fall on same level, initial encounter; Y93.89 Activity, other specified; Y92.89 Other specified places as the place of occurrence of the external cause; Y99.8 Other external cause status

== ENCOUNTER 2024-10-23 09:12 | Emergency (ER) | payer OTHER ==
[~2024-10-23] VITALS: Ht 180.3 cm; Wt 102.1 kg
[2024-10-23] MEDS ORDERED: Acetaminophen/Oxycodone 5 MG/325 MG TABLET PO ONE (09:50)
[2024-10-23] MEDS ORDERED: MORPHINE Sulfate 2 MG/ML SYR IM ONE (17:05)
== END 2024-10-23 18:48 | disposition short-term general hospital (02) ==
LOC: ED 09:12
DX: S22.42XA Multiple fractures of ribs, left side, initial encounter for closed fracture (principal); M25.512 Pain in left shoulder; J44.9 Chronic obstructive pulmonary disease, unspecified; I48.91 Unspecified atrial fibrillation; Z88.0 Allergy status to penicillin; Z79.899 Other long term (current) drug therapy; Z90.49 Acquired absence of other specified parts of digestive tract; Z87.891 Personal history of nicotine dependence; W18.39XA Other fall on same level, initial encounter; Y93.89 Activity, other specified; Y92.89 Other specified places as the place of occurrence of the external cause; Y99.8 Other external cause status

== ENCOUNTER 2024-11-14 09:02 | Inpatient (IN) | payer OTHER ==
[~2024-11-14] VITALS: Ht 180.3 cm; Wt 98.0 kg
[2024-11-14 09:33] LABS: BASO # 0.1 10*3/uL (0.0-0.1); BASO % 0.9 % (0.0-1.0); EOS # 0.2 10*3/uL (0.0-0.4); EOS % 1.9 % (1.0-4.0); MEAN CELL VOLUME 86.3 fl (80.0-94.0); MEAN CORPUSCULAR HGB 27.0 pg (27.0-31.0); MEAN PLATELET VOLUME 9.7 fl (9.6-12.3); MONO # 1.0 10*3/uL (0.1-1.0); MONO % 9.7 % (3.0-9.0); NEUT # 7.2 10*3/uL (2.3-7.9); NEUT % 71.0 % (47.0-73.0); NUCLEATED RED BLOOD CELL 0.0 % (0.0-0.0); NUCLEATED RED BLOOD CELL 0.0 10*3/uL (0.0-0.0); PLATELET COUNT AUTOMATED 305 10*3/uL (130-400); RED CELL DISTRI WIDTH 14.7 % (0-14.5)
[2024-11-14 09:55] LABS: BUN 11 mg/dl (9-23)
[2024-11-14] MEDS ORDERED: Cefepime Hydrochloride 2 GM in SODIUM CHLORIDE 0.9% 50 ML IV ONE (10:05)
[2024-11-14] MEDS ORDERED: ACETAMINOPHEN 650 MG SUPP R PRN (11:45)
[2024-11-14] MEDS ORDERED: BISACODYL 5 MG TAB PO PRN (11:45)
[2024-11-14] MEDS ORDERED: BISACODYL 10 MG SUPP R PRN (11:45)
[2024-11-14] MEDS ORDERED: ACETAMINOPHEN 325 MG TAB PO PRN (11:45)
[2024-11-14] MEDS ORDERED: Ondansetron Hydrochloride 4 MG/2 ML VIAL IV PRN (11:45)
[2024-11-14] MEDS ORDERED: diphenhydrAMINE hydrochloride 50 MG/ML VIAL IV PRN ×2 (11:50→19:07)
[2024-11-14 13:35] VITALS: BP 179/68
[2024-11-14] MEDS ORDERED: Albuterol Sulf/Ipratropium 3 ML VIAL NEB SCH (14:10)
[2024-11-14] MEDS ORDERED: BENZONATATE 100 MG CAP PO PRN (14:10)
[2024-11-14] MEDS ORDERED: METOPROLOL SUCCINATE XR 50 MG TAB PO SCH (14:15)
[2024-11-14 16:00] VITALS: BP 168/74
[2024-11-14 18:33] VITALS: BP 156/78
[2024-11-14 20:00] VITALS: BP 149/61
[2024-11-14] MEDS ORDERED: VANCOMYCIN HCL 1,250 MG in SODIUM CHLORIDE 0.9% 250 ML IV SCH (20:00)
[2024-11-14] MEDS ORDERED: Cefepime Hydrochloride 2 GM in SODIUM CHLORIDE 0.9% 50 ML IV SCH (22:00)
[2024-11-14] MEDS ORDERED: ATORVASTATIN CALCIUM 80 MG TAB PO SCH (22:00)
[2024-11-14] MEDS ORDERED: BUPROPION 100 MG PO SCH (22:00)
[2024-11-14] MEDS ORDERED: GUAIFENESIN 600 MG TAB ER PO SCH (22:00)
[2024-11-14] MEDS ORDERED: DONEPEZIL 10 MG TAB PO SCH (22:00)
[2024-11-14] MEDS ORDERED: APIXABAN 5 MG TAB PO SCH (22:00)
[2024-11-15] VITALS: BP 119/52
[2024-11-15 07:32] LABS: BASO # 0.1 10*3/uL (0.0-0.1); BASO % 0.9 % (0.0-1.0); EOS # 0.1 10*3/uL (0.0-0.4); EOS % 1.1 % (1.0-4.0); MEAN CELL VOLUME 87.4 fl (80.0-94.0); MEAN CORPUSCULAR HGB 26.8 pg (27.0-31.0); MEAN PLATELET VOLUME 10.2 fl (9.6-12.3); MONO # 1.1 10*3/uL (0.1-1.0); MONO % 10.6 % (3.0-9.0); NEUT # 7.6 10*3/uL (2.3-7.9); NEUT % 72.4 % (47.0-73.0); NUCLEATED RED BLOOD CELL 0.0 % (0.0-0.0); NUCLEATED RED BLOOD CELL 0.0 10*3/uL (0.0-0.0); PLATELET COUNT AUTOMATED 289 10*3/uL (130-400); RED CELL DISTRI WIDTH 14.8 % (0-14.5)
[2024-11-15 07:44] LABS: ACT PARTIAL THROMBO TIME 34.5 SECONDS (20.0-32.1)
[2024-11-15 07:53] LABS: BUN 12 mg/dl (9-23); FREE T4 1.17 ng/dl (0.89-1.76); LDL CHOLESTEROL 99 mg/dL (9-159); SGPT/ALT 9 U/L (5-49)
[2024-11-15 08:00] VITALS: BP 144/98
[2024-11-15] MEDS ORDERED: Vancomycin Hydrochloride 1,000 MG in SODIUM CHLORIDE 0.9% 250 ML IV SCH (08:01)
[2024-11-15 08:30] LABS: VITAMIN D, 25-HYDROXY 37.6 ng/mL (30-100)
[2024-11-15] MEDS ORDERED: EZETIMIBE 10 MG TAB PO SCH (10:00)
[2024-11-15 12:00] VITALS: BP 156/58
[2024-11-15 16:00] VITALS: BP 143/63
[2024-11-15 20:00] VITALS: BP 135/64
[2024-11-16] VITALS: BP 130/55
[2024-11-16 07:24] LABS: BASO # 0.1 10*3/uL (0.0-0.1); BASO % 1.0 % (0.0-1.0); EOS # 0.3 10*3/uL (0.0-0.4); EOS % 3.1 % (1.0-4.0); MEAN CELL VOLUME 87.4 fl (80.0-94.0); MEAN CORPUSCULAR HGB 26.8 pg (27.0-31.0); MEAN PLATELET VOLUME 10.2 fl (9.6-12.3); MONO # 0.8 10*3/uL (0.1-1.0); MONO % 9.5 % (3.0-9.0); NEUT # 5.6 10*3/uL (2.3-7.9); NEUT % 69.1 % (47.0-73.0); NUCLEATED RED BLOOD CELL 0.0 % (0.0-0.0); NUCLEATED RED BLOOD CELL 0.0 10*3/uL (0.0-0.0); PLATELET COUNT AUTOMATED 265 10*3/uL (130-400); RED CELL DISTRI WIDTH 14.6 % (0-14.5)
[2024-11-16 07:45] LABS: BUN 12 mg/dl (9-23)
[2024-11-16 08:00] VITALS: BP 122/48
[2024-11-16 12:00] VITALS: BP 138/64
[2024-11-16] MEDS ORDERED: VANCOMYCIN/WATER FOR INJ (PEG) 300 ML IV SCH (12:00)
[2024-11-16] MEDS ORDERED: CEPHALEXIN500 M1 PO (12:01)
[2024-11-16] MEDS ORDERED: SEPTDS PO (12:01)
== END 2024-11-16 14:20 | disposition home or self-care (01) | DRG 603 ==
LOC: ED 09:02 → EDHOLD 10:11 → 5E 10:11
PROVIDERS: Internal Medicine; ADMIT Student in an Organized Health Care Education/Training Program; ATTEND Student in an Organized Health Care Education/Training Program
DX: L03.114 Cellulitis of left upper limb (principal); I50.32 Chronic diastolic (congestive) heart failure; L23.7 Allergic contact dermatitis due to plants, except food; I48.91 Unspecified atrial fibrillation; E78.5 Hyperlipidemia, unspecified; I11.0 Hypertensive heart disease with heart failure; F43.10 Post-traumatic stress disorder, unspecified; G62.9 Polyneuropathy, unspecified; R73.9 Hyperglycemia, unspecified; D64.9 Anemia, unspecified; M25.512 Pain in left shoulder; E66.811 Obesity, class 1; F12.10 Cannabis abuse, uncomplicated; M75.102 Unspecified rotator cuff tear or rupture of left shoulder, not specified as traumatic; J44.9 Chronic obstructive pulmonary disease, unspecified; Z88.0 Allergy status to penicillin; S42.025 Nondisplaced fracture of shaft of left clavicle; S22.42XS Multiple fractures of ribs, left side, sequela; Z79.899 Other long term (current) drug therapy; Z79.01 Long term (current) use of anticoagulants; Z79.2 Long term (current) use of antibiotics; Z90.49 Acquired absence of other specified parts of digestive tract; Z87.891 Personal history of nicotine dependence; Z83.3 Family history of diabetes mellitus; Z68.30 Body mass index [BMI] 30.0-30.9, adult; X58.XXXS Exposure to other specified factors, sequela

== ENCOUNTER → 2024-11-18 | Outpatient (CLI) | payer OTHER ==
[~2024-11-18] MED LIST changes: +CEPHALEXIN500 M1 PO; +SEPTDS PO
== END | disposition home or self-care (01) ==
LOC: MRI 12:54
PROVIDERS: ATTEND Orthopaedic Surgery
DX: S46.812A Strain of other muscles, fascia and tendons at shoulder and upper arm level, left arm, initial encounter (principal); M75.102 Unspecified rotator cuff tear or rupture of left shoulder, not specified as traumatic; M75.52 Bursitis of left shoulder; X58.XXXA Exposure to other specified factors, initial encounter; Y93.89 Activity, other specified; Y92.89 Other specified places as the place of occurrence of the external cause; Y99.8 Other external cause status

== ENCOUNTER 2024-11-27 14:21 | Emergency (ER) | payer OTHER ==
[~2024-11-27] VITALS: Ht 180.3 cm; Wt 97.5 kg
[2024-11-27 14:51] LABS: BASO # 0.1 10*3/uL (0.0-0.1); BASO % 1.3 % (0.0-1.0); EOS # 0.1 10*3/uL (0.0-0.4); EOS % 1.2 % (1.0-4.0); MEAN CELL VOLUME 86.4 fl (80.0-94.0); MEAN CORPUSCULAR HGB 26.9 pg (27.0-31.0); MEAN PLATELET VOLUME 9.7 fl (9.6-12.3); MONO # 0.7 10*3/uL (0.1-1.0); MONO % 7.8 % (3.0-9.0); NEUT # 6.3 10*3/uL (2.3-7.9); NEUT % 66.3 % (47.0-73.0); NUCLEATED RED BLOOD CELL 0.0 % (0.0-0.0); NUCLEATED RED BLOOD CELL 0.0 10*3/uL (0.0-0.0); PLATELET COUNT AUTOMATED 315 10*3/uL (130-400); RED CELL DISTRI WIDTH 14.8 % (0-14.5)
[2024-11-27 15:07] LABS: BUN 12 mg/dl (9-23)
[2024-11-27] MEDS ORDERED: PREDNISONE50 MG PO (15:39)
== END 2024-11-27 15:43 | disposition home or self-care (01) ==
LOC: ED 14:21
PROVIDERS: Nurse Practitioner Family
DX: L27.0 Generalized skin eruption due to drugs and medicaments taken internally (principal); T36.8X5A Adverse effect of other systemic antibiotics, initial encounter; J44.9 Chronic obstructive pulmonary disease, unspecified; I48.91 Unspecified atrial fibrillation; Z88.0 Allergy status to penicillin; Z79.899 Other long term (current) drug therapy; Z79.2 Long term (current) use of antibiotics; Z90.49 Acquired absence of other specified parts of digestive tract; Z90.89 Acquired absence of other organs; Z87.891 Personal history of nicotine dependence; Y92.89 Other specified places as the place of occurrence of the external cause